=== PATIENT | female | born 1985 | race Caucasian/White ===

== ENCOUNTER 2019-01-05 17:11 | Emergency (ER) | payer OTHER ==
[~2019-01-05] VITALS: Ht 152.4 cm; Wt 49.0 kg
[2019-01-05 17:26] VITALS: BP 110/70
[2019-01-05] MEDS ORDERED: AMOX500C PO (17:46)
[2019-01-05] MEDS ORDERED: HYDR-3164 PO (17:46)
--- NOTE | 2019-01-05 17:47 | PHYS DOC ---
Past Medical History Past Medical History: No Pertinent History Past Surgical History: No Surgical History Alcohol Use: None Drug Use: None Adult General Chief Complaint Chief Complaint: EARACHE/EAR PAIN [facility] HPI Patient is a 33 year old female who presents with 3 days of nasal congestion, scratchy throat, left ear pain. Patient states she's got worse today than she has been. Rates her ear pain a sharp throbbing pain a 10 out of 10. Patient states she's been taking Tylenol and ibuprofen but is not helping. Review of Systems Review of Systems Constitutional: Denies fever or chills [] Eyes: Denies change in visual acuity, redness, or eye pain [] HENT: nasal congestion or sore throat, left ear pain[] Respiratory: Denies cough or shortness of breath [] Cardiovascular: No additional information not addressed in HPI [] GI: Denies abdominal pain, nausea, vomiting, bloody stools or diarrhea [] : Denies dysuria or hematuria [] Musculoskeletal: Denies back pain or joint pain [] Integument: Denies rash or skin lesions [] Neurologic: Denies headache, focal weakness or sensory changes [] All other systems were reviewed and found to be within normal limits, except as documented in this note. Allergies Allergies Allergies Coded Allergies Type Severity Reaction Last Updated Verified No Known Drug Allergies 01/05/19 No Physical Exam Physical Exam Constitutional: Well developed, well nourished, no acute distress, non-toxic appearance. [] HENT: Normocephalic, atraumatic, bilateral external ears normal, oropharynx moist, no oral exudates, nose normal. Left ear tympanic boggy and pink, very tender for exam. Throat red without swelling or exudates. [] Eyes: PERRLA, EOMI, conjunctiva normal, no discharge. [] Neck: Normal range of motion, no tenderness, supple, no stridor. [] Cardiovascular:Heart rate regular rhythm, no murmur [] Lungs & Thorax: Bilateral breath sounds clear to auscultation [] Abdomen: Bowel sounds normal, soft, no tenderness, no masses, no pulsatile masses. [] Skin: Warm, dry, no erythema, no rash. [] Back: No tenderness, no CVA tenderness. [] Extremities: No tenderness, no cyanosis, no clubbing, ROM intact, no edema. [] Neurologic: Alert and oriented X 3, normal motor function, normal sensory function, no focal deficits noted. [] Psychologic: Affect normal, judgement normal, mood normal. [] Current Patient Data Vital Signs Vital Signs Date Time Temp Pulse Resp B/P (MAP) Pulse Ox O2 Delivery O2 Flow Rate FiO2 01/05/19 17:26 98.3 86 17 110/70 (83) 98 Room Air 98.3 EKG EKG [] Radiology/Procedures Radiology/Procedures [] Course & Med Decision Making Course & Med Decision Making Patient is a 33 year old female who presents with 3 days of nasal congestion, scratchy throat, left ear pain. Patient states she's got worse today than she has been. Rates her left ear pain a sharp throbbing pain a 10 out of 10. Patient states she's been taking Tylenol and ibuprofen but is not helping. Patient denies nausea, vomiting, chest pain, shortness of air, abdominal pain, cough. Throat is reddened but is not swollen and there are no exudates. No palpable lymph nodes. Lungs are clear to auscultation all lobes. Abdomen is soft and nontender. Skin is pink warm and dry. Mucous membranes are moist. Patient is tearful. Ambulatory with a steady gait. Left ear tympanic was boggy and pink and very tender to examine. Patient states she also has a left upper back tooth that is broken but she does not think this pain is coming from that she has no dental pain. There is no swelling of her left upper gums her bottom gum line. Vital signs are within normal limits. Patient is given Amoxicillin and [place]. Patient to follow up with primary care on Tuesday. Dragon Disclaimer Dragon Disclaimer This electronic medical record was generated, in whole or in part, using a voice recognition dictation system. Departure Departure Impression: Primary Impression: Otitis media Disposition: HOME, SELF-CARE Condition: STABLE Referrals: PAMELLA LORENZO MD (PCP) Patient Instructions: Otitis Media, Adult Additional Instructions: Follow-up primary care provider on Tuesday. Take medications with food. Drink plenty of fluids. Try also taking antihistamines to dry up mucus secretion and any fluid that is behind the ear drum. Scripts Amoxicillin (AMOXICILLIN) 500 Mg Capsule 1 CAP PO BID, #20 CAP Prov: ANGEL MERCER PC MAINTENANCE TECHNICIAN 01/05/19 Hydrocodone/Apap 5-325 (NORCO 5-325 TABLET) 1 Each Tablet 1 TAB PO PRN Q6HRS PRN for PAIN, #6 TAB 0 Refills Prov: ANGEL MERCER PC MAINTENANCE TECHNICIAN 01/05/19 Problem Qualifiers Primary Impression: Otitis media Otitis media type: unspecified Laterality: left Qualified Codes: H66.92 - Otitis media, unspecified, left ear ANGEL MERCER PC MAINTENANCE TECHNICIAN Jan 05, 2019 17:47
== END 2019-01-05 18:07 | disposition home or self-care (01) ==
LOC: ER 17:11
DX: H66.92 Otitis media, unspecified, left ear (principal); R09.81 Nasal congestion; R09.89 Other specified symptoms and signs involving the circulatory and respiratory systems
CPT/HCPCS: 99283